=== PATIENT | female | born 1990 | race Caucasian/White ===

== ENCOUNTER → 2017-09-20 | Outpatient (CLI) | payer BC ==
--- NOTE | 2017-09-20 13:40 | KCIC ---
EXAM: Obstetrics sonogram. HISTORY: High risk . Size unequal to dates. TECHNIQUE: Sonographic imaging of a gravid uterus was performed. COMPARISON: None. FINDINGS: There is a single intrauterine fetus in cephalic presentation with a heart rate of 139 bpm. There is a posterior placenta without evidence of placenta previa. The cervix is closed and measures 5.8 cm in length. The amniotic fluid index is normal at 13.6 cm. There is body motion and breathing motion. There is a four-chamber heart. The stomach, kidneys, bladder, spine and brain are unremarkable. There is a four-chamber heart. The number of umbilical cord vessels cannot be determined and due to imaging technique. The biparietal diameter is 4.45 cm, corresponding with 19 weeks and 3 days. The head circumference is 16.89 cm, corresponding with 19 weeks and 4 days. The abdominal circumference is 14.53 cm, corresponding with 19 weeks and 6 days. The femoral length is 3.11 cm, corresponding with 19 weeks and 5 days. The estimated gestational age based on combined ultrasound measurements is 19 weeks and 5 days. The estimated weight is 309 g. IMPRESSION: 1. Single intrauterine fetus with a heart rate of 139 bpm and estimated gestational age based on ultrasound measurements of 19 weeks and 5 days. 2. Suboptimal evaluation of the umbilical cord due to technique and motion. Follow-up can be performed to assess umbilical cord vessel number if not previously documented. Electronically signed by: Gretchen Workman MD (09/20/2017 1:37 PM) [id number]
== END | disposition home or self-care (01) ==
LOC: KCIC US 11:19
PROVIDERS: ATTEND Obstetrics & Gynecology
DX: O09.92 Supervision of high risk pregnancy, unspecified, second trimester (principal); O26.842 Uterine size-date discrepancy, second trimester; Z3A.19 19 weeks gestation of pregnancy
CPT/HCPCS: 76805

== ENCOUNTER → 2017-12-02 | Outpatient (CLI) | payer BC ==
[2017-12-02 10:15] LABS: ADD MAN DIFF? NO
[2017-12-02 10:25] LABS: BASO % 0 % (0-3); EOS # 0.1 x10^3/uL (0.0-0.7); EOS % 1 % (0-3); HEMATOCRIT 40.2 % (36.0-47.0); HEMOGLOBIN 13.1 g/dL (12.0-15.5); LYMPH # 2.4 x10^3/uL (1.0-4.8); LYMPH % 15 % (24-48); MEAN CORPUSCULAR HEMOGLOBIN 30 pg (25-35); MEAN CORPUSCULAR HGB CONC 33 g/dL (31-37); MEAN CORPUSCULAR VOLUME 91 fL (79-100); MONO # 1.2 x10^3/uL (0.0-1.1); MONO % 7 % (0-9); NEUT # 12.6 x10^3uL (1.8-7.7); NEUT % 77 % (31-73); PLATELET COUNT 269 x10^3/uL (140-400); RED BLOOD COUNT 4.43 x10^6/uL (3.50-5.40); RED CELL DISTRIBUTION WIDTH 13.5 % (11.5-14.5); WHITE BLOOD COUNT 16.2 x10^3/uL (4.0-11.0)
[2017-12-02 10:32] LABS: GLUCOSE 65 mg/dL (70-99)
[2017-12-02 11:53] LABS: TYPE AND SCREEN 1 1
== END | disposition home or self-care (01) ==
LOC: LAB 09:52
DX: O09.93 Supervision of high risk pregnancy, unspecified, third trimester (principal); Z3A.29 29 weeks gestation of pregnancy
CPT/HCPCS: 36415; 82947; 82950; 85025; 86850; 86900; 86901; 96372; J2791

== ENCOUNTER 2018-01-01 11:26 | Inpatient (IN) | payer BC ==
[2018-01-01 12:32] LABS: AMNIO PT NEGATIVE; NEG OBC AMNIO NEG; POS OBC AMNIO POS
[2018-01-01 13:05] LABS: BILIRUBIN,URINE NEGATIVE (NEG); CLARITY,URINE CLEAR; COLOR,URINE YELLOW; GLUCOSE,URINE NEGATIVE (NEG); NITRITE,URINE NEGATIVE (NEG); PROTEIN,URINE NEGATIVE (NEG-TRACE); UROBILINOGEN,URINE 0.2 mg/dL (0.2 mg/dL)
[2018-01-01 13:06] LABS: BASO % 0 % (0-3); EOS # 0.1 x10^3/uL (0.0-0.7); EOS % 0 % (0-3); HEMATOCRIT 33.7 % (36.0-47.0); HEMOGLOBIN 11.3 g/dL (12.0-15.5); LYMPH % 12 % (24-48); MEAN CORPUSCULAR HEMOGLOBIN 30 pg (25-35); MEAN CORPUSCULAR HGB CONC 34 g/dL (31-37); MEAN CORPUSCULAR VOLUME 88 fL (79-100); MONO # 1.4 x10^3/uL (0.0-1.1); MONO % 9 % (0-9); NEUT # 12.7 x10^3uL (1.8-7.7); NEUT % 78 % (31-73); PLATELET COUNT 209 x10^3/uL (140-400); RED BLOOD COUNT 3.84 x10^6/uL (3.50-5.40); RED CELL DISTRIBUTION WIDTH 13.9 % (11.5-14.5); WHITE BLOOD COUNT 16.2 x10^3/uL (4.0-11.0)
[2018-01-01 13:09] LABS: ADD MAN DIFF? YES
[2018-01-01 13:26] LABS: BACTERIA,URINE MODERATE /HPF (0-FEW); RBC,URINE 0 /HPF (0-2); SQUAMOUS EPITHELIAL CELL,UR FEW /LPF
[2018-01-01] MEDS: BETAMET ACET&NA PHOS 30 MG/5 ML VIAL. IM (13:39)
[2018-01-01] MEDS ORDERED: 0.9 % SODIUM CHLORIDE 10 ML DISP.SYRIN. IV ×2 (13:45→19:15)
[2018-01-01] MEDS ORDERED: ONDANSETRON PF 4 MG/2 ML VIAL. IV ×2 (13:45→17:00)
[2018-01-01] MEDS ORDERED: LIDOCAINE 1% PF 30 ML VIAL. INJ (13:45)
[2018-01-01] MEDS: IV RINGERS,LACTATED 1000ML 1,000 ML IV ×2 (13:46→14:19)
[2018-01-01] MEDS: PENICILLIN G K 5,000,000 UNIT in IV DEXTROSE 5% 100 ML IV (14:28)
[2018-01-01] MEDS: fentaNYL PF VIAL 100 MCG/2 ML VIAL IV (15:33)
[2018-01-01 15:53] LABS: % ATYL 3 % (0-0); % BANDS 8 % (0-9); % LYMPHS 10 % (24-48); % METAS 2 % (0-0); % MONOS 4 % (0-10); % MYELOS 1 % (0-0); % SEGS 72 % (35-66); PLT ESTIMATE ADEQUATE (ADEQUATE)
[2018-01-01] MEDS ORDERED: L&D EPIDURAL CASSETTE 100 ML EP (16:59)
[2018-01-01] MEDS ORDERED: ROPIVacaine 0.2% IN 0.9%NACL PF 40 MG/20 ML DISP.SYRIN. ×2 (16:59→17:00)
[2018-01-01] MEDS: ROPIVacaine 0.2% PF 10 ML VIAL. EPI (17:00)
[2018-01-01] MEDS ORDERED: NALOXONE 0.4 MG/ML VIAL. IV (17:00)
[2018-01-01] MEDS ORDERED: ePHEDrine PF IN SALINE 50 MG/5 ML DISP.SYRIN IV (17:00)
[2018-01-01] MEDS: L&D EPIDURAL CASSETTE 100 ML EP (17:25)
[2018-01-01] MEDS: fentaNYL PF VIAL 100 MCG/2 ML VIAL EPI (17:25)
[2018-01-01] MEDS: PENICILLIN G K 2,500,000 UNIT in IV DEXTROSE 5% 50 ML IV ×2 (18:00→21:27)
[2018-01-01] MEDS: OXYTOCIN 30 UNIT/500 ML PREMIX 500 ML IV (18:47)
[2018-01-01] MEDS ORDERED: PHENYLEPH/MINERAL OIL/PETROLAT RECTAL OINTMENT 28GM TUBE. RC (19:15)
[2018-01-01] MEDS ORDERED: MAG HYDROX/ALUMINUM HYD/SIMETH 30 ML ORAL.SUSP PO (19:15)
[2018-01-01] MEDS ORDERED: ZOLPIDEM 5 MG TABLET. PO (19:15)
[2018-01-01] MEDS ORDERED: OXYTOCIN 30 UNIT/500 ML PREMIX 500 ML IV (19:15)
[2018-01-01] MEDS ORDERED: HYDROCORTISONE 1% TOPICAL OINTMENT 30GM TUBE. TP (19:15)
[2018-01-01] MEDS ORDERED: MMR per PROTOCOL. MC (19:15)
[2018-01-01] MEDS ORDERED: IBUPROFEN 800 MG TABLET. PO (19:15)
[2018-01-01] MEDS ORDERED: oxyCODONE/APAP 5/325 1 TAB TABLET PO (19:15)
[2018-01-01] MEDS ORDERED: diphenhydrAMINE HCL 25 MG CAPSULE PO (19:15)
[2018-01-01] MEDS ORDERED: MAGNESIUM HYDROXIDE 2,400 MG/30 ML ORAL.SUSP. PO (19:15)
[2018-01-01] MEDS ORDERED: ACETAMINOPHEN 325 MG TABLET. PO (19:15)
[2018-01-01] MEDS: BENZOCAINE 20% TOPICAL AEROSOL SPRAY 57GM CAN. TP (21:03)
[2018-01-01] MEDS: SIMETHICONE 80 MG TAB.CHEW PO (23:56)
[2018-01-01] MEDS: DOCUSATE SODIUM 100 MG CAPSULE. PO (23:57)
[2018-01-01] MEDS: FLUCONAZOLE 100 MG TABLET. PO (23:57)
[2018-01-01] MEDS: IBUPROFEN 800 MG TABLET. PO (23:58)
[2018-01-02 06:24] LABS: ADD MAN DIFF? NO
[2018-01-02 06:54] LABS: BASO % 0 % (0-3); EOS % 0 % (0-3); HEMOGLOBIN 11.3 g/dL (12.0-15.5); LYMPH # 1.7 x10^3/uL (1.0-4.8); LYMPH % 6 % (24-48); MEAN CORPUSCULAR HEMOGLOBIN 29 pg (25-35); MEAN CORPUSCULAR HGB CONC 33 g/dL (31-37); MEAN CORPUSCULAR VOLUME 88 fL (79-100); MONO # 1.9 x10^3/uL (0.0-1.1); MONO % 7 % (0-9); NEUT # 25.6 x10^3uL (1.8-7.7); NEUT % 88 % (31-73); PLATELET COUNT 258 x10^3/uL (140-400); RED BLOOD COUNT 3.88 x10^6/uL (3.50-5.40); RED CELL DISTRIBUTION WIDTH 13.9 % (11.5-14.5); WHITE BLOOD COUNT 29.2 x10^3/uL (4.0-11.0)
[2018-01-02] MEDS ORDERED: FERROUS SULFATE 325 MG TABLET. PO (08:00)
[2018-01-02] MEDS ORDERED: ALBUTEROL SULFATE 2.5 MG/3 ML NEBU. NEB (08:15)
[2018-01-02 10:16] LABS: % BANDS 1 % (0-9); % LYMPHS 4 % (24-48); % MONOS 1 % (0-10); % SEGS 94 % (35-66); PLT ESTIMATE ADEQUATE (ADEQUATE)
[2018-01-02] MEDS: PANTOPRAZOLE 40 MG TABLET.DR. PO (19:42)
[2018-01-02] MEDS: IBUPROFEN 800 MG TABLET. PO (23:06)
[2018-01-03 07:05] LABS: ADD MAN DIFF? NO
[2018-01-03 07:18] LABS: BASO % 0 % (0-3); EOS % 0 % (0-3); HEMATOCRIT 29.9 % (36.0-47.0); HEMOGLOBIN 9.8 g/dL (12.0-15.5); LYMPH # 3.2 x10^3/uL (1.0-4.8); LYMPH % 17 % (24-48); MEAN CORPUSCULAR HEMOGLOBIN 29 pg (25-35); MEAN CORPUSCULAR HGB CONC 33 g/dL (31-37); MEAN CORPUSCULAR VOLUME 89 fL (79-100); MONO # 1.7 x10^3/uL (0.0-1.1); MONO % 9 % (0-9); NEUT # 13.5 x10^3uL (1.8-7.7); NEUT % 73 % (31-73); PLATELET COUNT 227 x10^3/uL (140-400); RED BLOOD COUNT 3.35 x10^6/uL (3.50-5.40); RED CELL DISTRIBUTION WIDTH 14.4 % (11.5-14.5); WHITE BLOOD COUNT 18.4 x10^3/uL (4.0-11.0)
[2018-01-03 08:07] LABS: RPR Non Reactive (Non Reactive)
[2018-01-03] MEDS: DOCUSATE SODIUM 100 MG CAPSULE. PO ×2 (08:38→16:52)
[2018-01-03] MEDS: SIMETHICONE 80 MG TAB.CHEW PO (08:39)
[2018-01-03] MEDS: PANTOPRAZOLE 40 MG TABLET.DR. PO (08:39)
[2018-01-03] MEDS: IBUPROFEN 800 MG TABLET. PO ×2 (08:39→16:52)
[2018-01-03] MEDS: MEASLES, MUMPS & RUBELLA VACC 0.5 ML VIAL. VAX SQ (14:34)
[2018-01-03 14:35] LABS: FETAL SCREEN 1 1
[2018-01-03] MEDS: DIPHTH,PERTUSS(ACELL),TET TOX 0.5 ML DISP.SYRIN. VAX IM (14:35)
[2018-01-04 07:46] LABS: STREP B BY PCR SEE SEPARATE REPORT
== END 2018-01-03 17:18 | disposition home or self-care (01) | DRG 775 ==
LOC: 3 SO LND 11:26 → 3 NORTH 21:25
PROC: 10E0XZZ Delivery of Products of Conception, External Approach (ICD-10-PCS; principal; 2018-01-01)
PROC: 3E0R3BZ Introduction of Anesthetic Agent into Spinal Canal, Percutaneous Approach (ICD-10-PCS; 2018-01-01)
PROC: 00HU33Z Insertion of Infusion Device into Spinal Canal, Percutaneous Approach (ICD-10-PCS; 2018-01-01)
PROC: 3E0234Z Introduction of Serum, Toxoid and Vaccine into Muscle, Percutaneous Approach (ICD-10-PCS; 2018-01-01)
PROC: 0HQ9XZZ Repair Perineum Skin, External Approach (ICD-10-PCS; 2018-01-01)
PROC: 30233N1 Transfusion of Nonautologous Red Blood Cells into Peripheral Vein, Percutaneous Approach (ICD-10-PCS; 2018-01-01)
DX: O60.14X0 Preterm labor third trimester with preterm delivery third trimester, not applicable or unspecified (principal); O70.0 First degree perineal laceration during delivery; Z23 Encounter for immunization; Z37.0 Single live birth; Z3A.34 34 weeks gestation of pregnancy
CPT/HCPCS: 36415; 71045; 76815; 81001; 84112; 85007; 85025; 85461; 86593; 86850; 86870; 86900; 86901; 87086; 87653; 88307; 90707; 90715; 93005; 94640; 94760; J0702; J2540; J2590; J2791; J2795; J3010; J7120

== ENCOUNTER 2020-09-21 23:12 | Emergency (ER) | payer BC ==
[~2020-09-21] VITALS: Ht 149.9 cm; Wt 72.7 kg
[~2020-09-21 23:12] MED LIST: IBUP-1060 PO; PANT20TA2 PO
[2020-09-22] MEDS ORDERED: KETOROLAC 15 MG/ML VIAL. IVP ONE (01:30)
--- NOTE | 2020-09-22 01:44 | RAD ---
Study: CR SHOULDER 2+V LEFT Indication: Shoulder pain. Comparison: None. Findings: Alignment is anatomic. No significant degenerative change. No acute fracture. Impression: No acute osseous abnormality. Electronically signed by: CELESTE MORRIS MD (09/22/2020 1:41 AM) [id number]
--- NOTE | 2020-09-22 01:45 | RAD ---
Study: CR PORTABLE CHEST 1V Indication: Chest pain. Comparison: 01/02/2018 Findings: The cardiomediastinal silhouette and lizzie are within normal limits. No lobar consolidation, pleural effusion or pneumothorax. Grossly intact osseous structures. Unremarkable upper abdomen. Impression: No acute radiographic abnormality of the chest. Electronically signed by: CELESTE MORRIS MD (09/22/2020 1:42 AM) [id number]
[2020-09-22 01:51] LABS: BASO # 0.1 x10^3/uL (0.0-0.2); BASO % 0 % (0-3); EOS # 0.2 x10^3/uL (0.0-0.7); EOS % 1 % (0-3); HEMATOCRIT 39.8 % (36.0-47.0); HEMOGLOBIN 13.4 g/dL (12.0-15.5); LYMPH % 31 % (24-48); MEAN CORPUSCULAR HEMOGLOBIN 30 pg (25-35); MEAN CORPUSCULAR HGB CONC 34 g/dL (31-37); MEAN CORPUSCULAR VOLUME 88 fL (79-100); MONO # 1.2 x10^3/uL (0.0-1.1); MONO % 9 % (0-9); NEUT # 7.4 x10^3/uL (1.8-7.7); NEUT % 58 % (31-73); PLATELET COUNT 292 x10^3/uL (140-400); RED CELL DISTRIBUTION WIDTH 13.2 % (11.5-14.5); WHITE BLOOD COUNT 12.7 x10^3/uL (4.0-11.0)
--- NOTE | 2020-09-22 01:53 | PHYS DOC ---
Past Medical History Past Medical History: No Pertinent History Past Surgical History: Other Additional Past Surgical Histo: HERNIA MESH Smoking Status: Former Smoker Alcohol Use: None General Adult EDM: Chief Complaint: SHOUDLER pain HPI: HPI: Patient is a 30 year old female who presents with left-sided subscapular shoulder and axilla pain. Pain has been going on for the last 6 weeks. Patient was seen by another physician and diagnosed with pleurisy. Patient describing pain that radiates into her chest and somewhat down her arm. Patient has 10 out of 10 pain with range of motion which makes the symptoms worse. Patient has pain with deep breaths. Patient is also describing some shortness of breath. Review of Systems: Review of Systems: Constitutional: Denies fever or chills. [] Eyes: Denies change in visual acuity. [] HENT: Denies nasal congestion or sore throat. [] Respiratory: Denies but has shortness of breath. [] Cardiovascular: Complains of some left-sided chest pain that radiated from the left shoulder GI: Denies abdominal pain, nausea, vomiting, bloody stools or diarrhea. [] : Denies dysuria. [] Musculoskeletal: Complains of pain beneath the left scapula and in thoracic area as well as in the left shoulder Integument: Denies rash. [] Neurologic: Denies headache, focal weakness or sensory changes. [] Endocrine: Denies polyuria or polydipsia. [] Lymphatic: Denies swollen glands. [] Psychiatric: Denies depression or anxiety. [] Heart Score: HEART Score for Chest Pain: HEART Score for Chest Pain Response (Comments) Value History Slighlty/Non-Suspicious 0 ECG Normal 0 Age < 45 0 Risk Factors No Risk Factors 0 Troponin < Normal Limit 0 Total 0 Risk Factors: Risk Factors: DM, Current or recent (<one month) smoker, HTN, HLP, family history of CAD, obesity. Risk Scores: Score 0 - 3: 2.5% MACE over next 6 weeks - Discharge Home Score 4 - 6: 20.3% MACE over next 6 weeks - Admit for Clinical Observation Score 7 - 10: 72.7% MACE over next 6 weeks - Early Invasive Strategies Current Medications: Current Medications Medications (Trade) Dose Ordered Sig/Cookie Start Time Stop Time Status Last Admin Dose Admin Ketorolac Tromethamine (Toradol 15mg Vial) 15 mg 1X ONCE 09/22/20 01:30 09/22/20 01:31 DC 09/22/20 01:43 15 MG Allergies: Allergies: Allergies Coded Allergies Type Severity Reaction Last Updated Verified No Known Drug Allergies 01/01/18 No Physical Exam: PE: Constitutional: Well developed, well nourished, no acute distress, non-toxic appearance. [] HENT: Normocephalic, atraumatic, bilateral external ears normal, no trismus nose normal. [] Eyes: PERRLA, EOMI, conjunctiva normal, no discharge. [] Neck: Normal range of motion, no tenderness, supple, no stridor. [] Cardiovascular:Heart rate regular rhythm, peripheral pulses are intact cap refill is brisk Lungs & Thorax: Bilateral breath sounds clear, no respiratory distress. Tenderness to palpate left chest wall Abdomen: , soft, no tenderness, no masses, no pulsatile masses. [] Skin: Warm, dry, no erythema, no rash. [] Back: No tenderness, tenderness on the left thoracic area Extremities: Tenderness to the left shoulder and left chest wall in the left axilla with some fullness present. significant range of motion decreased in the left shoulder Neurologic: Alert and oriented X 3, normal motor function, normal sensory function, no focal deficits noted. [] Psychologic: Affect normal, judgement normal, mood normal. [] Current Patient Data: Labs: Laboratory Tests Test 09/22/20 01:25 White Blood Count 12.7 x10^3/uL Red Blood Count 4.50 x10^6/uL Hemoglobin 13.4 g/dL Hematocrit 39.8 % Mean Corpuscular Volume 88 fL Mean Corpuscular Hemoglobin 30 pg Mean Corpuscular Hemoglobin Concent 34 g/dL Red Cell Distribution Width 13.2 % Platelet Count 292 x10^3/uL Neutrophils (%) (Auto) 58 % Lymphocytes (%) (Auto) 31 % Monocytes (%) (Auto) 9 % Eosinophils (%) (Auto) 1 % Basophils (%) (Auto) 0 % Neutrophils # (Auto) 7.4 x10^3/uL Lymphocytes # (Auto) 4.0 x10^3/uL Monocytes # (Auto) 1.2 x10^3/uL Eosinophils # (Auto) 0.2 x10^3/uL Basophils # (Auto) 0.1 x10^3/uL D-Dimer (Alice) < 0.27 ug/mlFEU Maternal Serum HCG Beta Subunit 1 mIU/mL Sodium Level 141 mmol/L Potassium Level 3.4 mmol/L Chloride Level 106 mmol/L Carbon Dioxide Level 27 mmol/L Anion Gap 8 Blood Urea Nitrogen 12 mg/dL Creatinine 1.6 mg/dL Estimated GFR (Cockcroft-Gault) 38.1 BUN/Creatinine Ratio 8 Glucose Level 104 mg/dL Calcium Level 8.9 mg/dL Total Bilirubin 0.2 mg/dL Aspartate Amino Transf (AST/SGOT) 12 U/L Alanine Aminotransferase (ALT/SGPT) 14 U/L Alkaline Phosphatase 50 U/L Troponin I Quantitative < 0.017 ng/mL C-Reactive Protein, Quantitative 1.4 mg/L Total Protein 7.0 g/dL Albumin 3.8 g/dL Albumin/Globulin Ratio 1.2 Current Medications Medications (Trade) Dose Ordered Sig/Cookie Route PRN Reason Start Time Stop Time Status Last Admin Dose Admin Ketorolac Tromethamine (Toradol 15mg Vial) 15 mg 1X ONCE IVP 09/22/20 01:30 09/22/20 01:31 DC 09/22/20 01:43 Vital Signs: Vital Signs Date Time Temp Pulse Resp B/P (MAP) Pulse Ox O2 Delivery O2 Flow Rate FiO2 09/21/20 23:55 97.9 92 13 133/69 (90) 98 Room Air 97.9 EKG: EKG: EKG interpreted by me normal sinus rhythm with a rate of 68 normal axis normal intervals normal ST segments [] Radiology/Procedures: Radiology/Procedures: [][facility] [address] [place] [address] IMAGING REPORT Signed PATIENT: SJ FENG ACCOUNT: [id number] : 1990 LOCATION: ER AGE: 30 SEX: F EXAM STATUS: REG ER ORD. PHYSICIAN: MIGUELINA WHITLEY MD REASON: left shoulder/chest pain PROCEDURE: SHOULDER 2+V LEFT Study: CR SHOULDER 2+V LEFT Indication: Shoulder pain. Comparison: None. Findings: Alignment is anatomic. No significant degenerative change. No acute fracture. Impression: No acute osseous abnormality. Electronically signed by: CELESTE MORRIS MD (09/22/2020 1:41 AM) [id number] DICTATED and SIGNED BY: CELESTE MORRIS MD DATE: 09/22/20140 [facility] [address] [place] [address] IMAGING REPORT Signed PATIENT: SJ FENG ACCOUNT: [id number] : 1990 LOCATION: ER AGE: 30 SEX: F EXAM STATUS: REG ER ORD. PHYSICIAN: MIGUELINA WHITLEY MD REASON: left shoulder/chest pain PROCEDURE: PORTABLE CHEST 1V Study: CR PORTABLE CHEST 1V Indication: Chest pain. Comparison: 01/02/2018 Findings: The cardiomediastinal silhouette and lizzie are within normal limits. No lobar consolidation, pleural effusion or pneumothorax. Grossly intact osseous structures. Unremarkable upper abdomen. Impression: No acute radiographic abnormality of the chest. Electronically signed by: CELESTE MORRIS MD (09/22/2020 1:42 AM) [id number] DICTATED and SIGNED BY: CELESTE MORRIS MD DATE: 09/22/20141 Course & Med Decision Making: Course & Med Decision Making Pertinent Labs and Imaging studies reviewed. (See chart for details) [] 30-year-old female presents with left-sided chest wall and shoulder pain is worse with range of motion. Patient has significant tenderness under the left axilla and limited range of motion left shoulder. My work-up is reassuring, I have no obvious etiology for the symptoms of her pain. Patient be treated with a sling and steroids to help reduce information as well as pain meds. Patient given referral to an orthopedic doctor as well as her primary care physician for further evaluation treatment. Dragon Disclaimer: Dragon Disclaimer: This electronic medical record was generated, in whole or in part, using a voice recognition dictation system. Departure Departure Impression: Primary Impression: Left-sided chest wall pain Additional Impressions: Chest pain Left shoulder pain Disposition: 01 DC HOME SELF CARE/HOMELESS Condition: STABLE Referrals: BRENT RIVERS MD (PCP) 2-3 days QUINCY STEVENSON MD 2-3 days Patient Instructions: Arm Sling Use-Brief, Chest Wall Pain, Shoulder Pain Additional Instructions: EMERGENCY DEPARTMENT GENERAL DISCHARGE INSTRUCTIONS THANK YOU for coming to [facility] Emergency Department (ED) today and trusting us with your care. We trust that you had a positive experience in our Emergency Department. If you wish to speak to the department Management you can contact the environmental department manager at . YOUR FOLLOW UP INSTRUCTIONS ARE FOLLOWS: Do you have a private doctor? If you do not have a private doctor, please ask for a resource list of physicians or clinics that may be able to assist you with follow up care. The Emergency Physician has interpreted your x-rays. The X-ray specialist will also review them. If there is a change in the findings you will be notified in 48 hours when at all possible. A lab test or lab culture may have been done, your results will be reviewed and you will be notified if you need a change in treatment. ADDITIONAL INSTRUCTIONS AND INFORMATION Your care today has been supervised by a physician who is specially trained in emergency care. Many problems require more than one evaluation for a complete diagnosis and treatment. We recommend that you schedule your follow up appointment as recommended to ensure complete treatment of your illness or injury. If you are unable to obtain follow up care and continue to have a problem, or if your condition worsens we recommend that you return to the ED. We are not able to safely determine your condition over the phone nor are we able to give sound medical advice over the phone. For these safety reasons, if you call for medical advice we will ask you to come to the ED for further evaluation If you have any questions regarding these discharge instructions please call the ED at . SAFETY INFORMATION In the interest of safety, wellness, and injury prevention; we encourage you to wear your seatbelt, if you smoke; quit smoking, and we encourage your family to use protective helmet for bicycling and other sporting events that present an increased risk for head injury. IF YOUR SYMPTOMS WORSEN OR NEW SYMPTOMS DEVELOP, OR YOU HAVE CONCERNS ABOUT YOUR CONDITION; OR IF YOUR CONDITION WORSENS WHILE YOU ARE WAITING FOR YOUR FOLLOW UP APPOINTMENT; EITHER CONTACT YOUR PRIMARY CARE DOCTOR, THE PHYSICIAN WHOSE NAME AND NUMBER YOU WERE GIVEN, OR RETURN TO THE ED IMMEDIATELY. Scripts Hydrocodone/Apap 5-325 (NORCO 5-325 TABLET) 1 Each Tablet 1-2 EACH PO PRN Q6HRS PRN for PAIN, #15 as needed for pain Prov: MIGUELINA WHITLEY MD 09/22/20 Methylprednisolone (MEDROL) 4 Mg Tab.ds.pk 1 PKG PO UD, #1 PKG Prov: MIGUELINA WHITLEY MD 09/22/20 MIGUELINA WHITLEY MD Sep 22, 2020 01:53
[2020-09-22 01:59] LABS: CALCIUM 8.9 mg/dL (8.5-10.1); CREATININE 1.6 mg/dL (0.6-1.0); GFR 38.1; POTASSIUM 3.4 mmol/L (3.5-5.1)
[2020-09-22 02:05] LABS: ALBUMIN 3.8 g/dL (3.4-5.0); ALBUMIN/GLOBULIN RATIO 1.2 (1.0-1.7); C-REACTIVE PROTEIN 1.4 mg/L (0-3.3); TOTAL BILIRUBIN 0.2 mg/dL (0.2-1.0)
--- NOTE | 2020-09-22 03:30 | RAD ---
STUDY: CT chest without contrast INDICATION: Left chest/axilla pain. COMPARISON: None. TECHNIQUE: Helical CT imaging of the chest performed without the use of intravenous contrast. Sagittal and coronal reformats were obtained. One or more of the following individualized dose reduction techniques were utilized for this examination: 1. Automated exposure control 2. Adjustment of the mA and/or kV according to patient size 3. Use of iterative reconstruction technique. FINDINGS: Vasculature: Nonaneurysmal aorta. The main pulmonary artery is within normal limits for transverse dimension. Mediastinum/lizzie: No mass, adenopathy or pericardial effusion. Lungs: Unremarkable. Neck/axilla/chest wall: No axillary adenopathy on either side. Unremarkable thyroid. Faint axillary skin thickening on the left and trace subcutaneous fatty reticulation. No fluid collection is apparent. The visualized breast tissue is relatively symmetric. Unremarkable musculature. Bones: No acute fracture or malalignment at either shoulder girdle. Intact ribs and thoracic spine. No significant degenerative changes. Upper abdomen: Unremarkable. IMPRESSION: 1. No acute abnormality is identified throughout the chest to account for the patient's symptoms with particular attention paid to the left shoulder and axilla given history. 2. There is apparent mild skin thickening at the left axilla and minimal subcutaneous fatty stranding but the contralateral side is not included in the [id number] to determine if this is asymmetric and of any significance. Correlate with direct inspection for any regional inflammation such as could be from hydradenitis. Electronically signed by: CELESTE MORRIS MD (09/22/2020 3:27 AM) [id number]
[2020-09-22] MEDS ORDERED: HYDR-3164 PO (03:42)
[2020-09-22] MEDS ORDERED: METH4TAB2 PO (03:42)
[2020-09-22 04:15] VITALS: BP 120/70
--- NOTE | 2020-09-22 05:41 | EKG ---
[facility] [address] [place] [address] Test Date: 2020-09-22 Test Time: 01:22:06 Pat Name: SJ FENG Department: Room: Gender: F Tapper Operator: : 1990 Requested By: MIGUELINA WHITLEY Order Number: [id number] Reading MD: Measurements Intervals [place] Rate: 68 P: 45 MS: 168 QRS: 28 QRSD: 82 T: 28 QT: 390 QTc: 415 Interpretive Statements SINUS RHYTHM NO SPECIFIC ECG ABNORMALITIES RI6.01 No previous ECG available for comparison
== END 2020-09-22 04:15 | disposition home or self-care (01) ==
LOC: ER 23:12
DX: R07.89 Other chest pain (principal); M25.512 Pain in left shoulder; R06.02 Shortness of breath; Z87.891 Personal history of nicotine dependence
CPT/HCPCS: 36415; 71045; 71250; 73030; 80053; 84484; 84702; 85025; 85379; 86140; 93005; 96374; 99285; J1885

== ENCOUNTER 2021-08-31 15:30 | Emergency (ER) | payer BC ==
[~2021-08-31] VITALS: Ht 149.9 cm; Wt 81.8 kg
[~2021-08-31 15:30] MED LIST changes: +HYDR-3164 PO; +METH4TAB2 PO
--- NOTE | 2021-08-31 17:10 | RAD ---
RIGHT LEG VENOUS DOPPLER STUDY: Clinical indications: Right thigh pain. Findings: Duplex sonography (including peraza scale evaluation and color flow and waveform spectral keri lysis) of the proximal aspect of the greater saphenous vein and proximal aspect of the profunda femor al vein and the entire length of the common femoral and superficial femoral and popliteal veins and t he tibioperoneal trunk and the proximal aspect of the posterior tibial and peroneal veins of the righ t leg was performed. Normal compressibility, augmentation of color Doppler flow after calf compressio n, and respiratory variation of Doppler flow is seen. Thus, there are no sonographic findings of deep venous thrombosis within these veins. Impression: There are no sonographic findings of deep venous thrombosis within the veins discussed ab ove of the right lower extremity. Electronically signed by: Garcia Ramos MD (08/31/2021 5:08 PM) [id number]
--- NOTE | 2021-08-31 17:33 | RAD ---
INDICATION: Reason: SOA / Spl. Instructions: / History: COMPARISON: September 2020 FINDINGS: Single view of chest obtained. Cardiac silhouette is similar to prior. Relative opacity at lung bases without definite consolidation elsewhere in the lungs. IMPRESSION: * Mild opacity at lung bases. Could be from overlap of structures but a small focus of atelectasis o r infiltrate is not excluded given this finding. Electronically signed by: Tenzin Sam MD (08/31/2021 5:30 PM) [id number]
--- NOTE | 2021-08-31 17:34 | PHYS DOC ---
Past Medical History Past Medical History: No Pertinent History Past Surgical History: Other Additional Past Surgical Histo: HERNIA MESH Smoking Status: Former Smoker Alcohol Use: None General Adult EDM: Chief Complaint: SHORTNESS OF BREATH HPI: HPI: Patient is a 31 year old female with no significant medical history presenting today complaining of shortness of breath, symptoms have been going on for "weeks" initially patient could not narrow down how many weeks she has had the symptoms. I had to talk up for quite some time to get this information, she finally stated 4 weeks. She states she was seen by the PCP 2 weeks ago and had a work-up done including a chest x-ray. She states she was told she has atelectasis. She states she did not know what that meant so she asked the radiology aide who told her one of her lungs has collapsed. Patient denies any fever. Denies any chest pain. She also reports swelling on her right thigh, sh e states this has been weeks as well. Patient denies any trauma. Reports mild pain to the thigh region. States pain is worse on touching the region. 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 Patient is fully vaccinated against Covid including receiving a booster Pfizer vaccine recently Review of Systems: Review of Systems: Constitutional: Denies fever or chills. [] Eyes: Denies change in visual acuity. [] HENT: Denies nasal congestion or sore throat. [] Respiratory: Reports shortness of breath. [] Cardiovascular: Denies chest pain or edema. [] GI: Denies abdominal pain, nausea, vomiting, bloody stools or diarrhea. [] : Denies dysuria. [] Musculoskeletal: Reports pain and swelling to the right thigh. Denies back pain . [] Integument: Denies rash. [] Neurologic: Denies headache, focal weakness or sensory changes. [] Psychiatric: Reports stress. Heart Score: C/O Chest Pain: N/A Risk Factors: Risk Factors: DM, Current or recent (<one month) smoker, HTN, HLP, family history of CAD, obesity. Risk Scores: Score 0 - 3: 2.5% MACE over next 6 weeks - Discharge Home Score 4 - 6: 20.3% MACE over next 6 weeks - Admit for Clinical Observation Score 7 - 10: 72.7% MACE over next 6 weeks - Early Invasive Strategies Allergies: Allergies: Allergies Coded Allergies Type Severity Reaction Last Updated Verified No Known Drug Allergies 01/01/18 No Physical Exam: PE: Constitutional: Well developed, well nourished, no acute distress, non-toxic appearance. [] HENT: Normocephalic, atraumatic, bilateral external ears normal, oropharynx moist, no oral exudates, nose normal. [] Eyes: PERRLA, EOMI, conjunctiva normal, no discharge. [] Neck: Normal range of motion, no tenderness, supple, no stridor. [] Cardiovascular:Heart rate regular rhythm, no murmur [] Lungs & Thorax: Bilateral breath sounds clear to auscultation [] Abdomen: Bowel sounds normal, soft, no tenderness, no masses, no pulsatile masses. [] Skin: Warm, dry, no erythema, no rash. [] Back: No tenderness, no CVA tenderness. [] Extremities: No tenderness, no cyanosis, no clubbing, ROM intact, no edema. Negative Homans' sign bilaterally. Neurologic: Alert and oriented X 3, normal motor function, normal sensory function, no focal deficits noted. [] Psychologic: Affect normal, judgement normal, mood normal. [] Current Patient Data: Labs: Laboratory Tests Test 08/31/21 16:36 POC Urine HCG, Qualitative Hcg negative (Negative) Vital Signs: Vital Signs Date Time Temp Pulse Resp B/P (MAP) Pulse Ox O2 Delivery O2 Flow Rate FiO2 08/31/21 16:43 98.2 85 17 125/62 (83) 100 Room Air 98.2 EKG: EKG: [] Radiology/Procedures: Radiology/Procedures: []PROCEDURE: VENOUS LOWER EXTREMITY RIGHT RIGHT LEG VENOUS DOPPLER STUDY: Clinical indications: Right thigh pain. Findings: Duplex sonography (including peraza scale evaluation and color flow and waveform spectral analysis) of the proximal aspect of the greater saphenous vein and proximal aspect of the profunda femoral vein and the entire length of the common femoral and superficial femoral and popliteal veins and the tibioperoneal trunk and the proximal aspect of the posterior tibial and peroneal veins of the right leg was performed. Normal compressibility, augmentation of color Doppler flow after calf compression, and respiratory variation of Doppler flow is seen. Thus, there are no sonographic findings of deep venous thrombosis within these veins. Impression: There are no sonographic findings of deep venous thrombosis within the veins discussed above of the right lower extremity. Electronically signed by: Guicho Ramos MD (08/31/2021 5:08 PM) [id number] DICTATED and SIGNED BY: GUICHO RAMOS MD DATE: 08/31/21 [id number] 0 Course & Med Decision Making: Course & Med Decision Making Pertinent Labs and Imaging studies reviewed. (See chart for details) This is a 31-year-old female patient presenting to the ED today complaining of shortness of breath for weeks. See HPI, patient has been seen by PCP 2 weeks ago for the same complaint, was worked up including a chest x-ray that she states was noted for atelectasis. She states the radiology aide told her she has a collapsed lung. Vitals on arrival to the ED O2 sats 100% on room air, temperature 98.2, respiration 18, heart rate 85, blood pressure 125/62 She is also complaining of swelling on her right thigh, on physical exam no swelling was noted. Venous Doppler of the right lower extremity was performed which was negative. Chest x-ray was noted for possible atelectasis or infiltrate, CT chest was done which is negative for any acute findings. Negative rapid Covid test. Patient was discharged to home. Discharge with albuterol inhaler. Follow-up with PCP in 1 week Osito Disclaimer: Osito Disclaimer: This electronic medical record was generated, in whole or in part, using a voice recognition dictation system. Departure Departure Impression: Primary Impression: Shortness of breath Additional Impression: Stress Disposition: 01 HOME / SELF CARE / HOMELESS Condition: STABLE Referrals: BRENT RIVERS MD (PCP) follow up in one week with your doctor Patient Instructions: Shortness of Breath, [id number] Additional Instructions: You were evaluated in the emergency room, your CT of the chest is negative for any acute findings, your ultrasound of the right lower extremity is also negative. We encourage you to use the inhaler as needed for shortness of breath. We also encourage you to follow-up with your primary care doctor next week Scripts Albuterol Sulfate (Proair Hfa) 8.5 Gm Hfa.aer.ad 2 PUFF IH PRN Q4-6HRS PRN for wheezing for 21 Days, #1 INHALER 0 Refills Prov: JORDAN MIRANDA APRN 08/31/21 JORDAN MIRANDA APRN Aug 31, 2021 17:34
--- NOTE | 2021-08-31 18:18 | RAD ---
CT of the chest without contrast: Clinical History: Reason: SOA / Spl. Instructions: / History: . Axial helical images of the chest were obtained without contrast. The lungs and pleural margins are clear. There is no mediastinal or hilar lymphadenopathy. Impression: No significant findings. End impression PQRS Compliance Statement: One or more of the following individualized dose reduction techniques were utilized for this examinat ion: 1. Automated exposure control 2. Adjustment of the mA and/or kV according to patient size 3. Use of iterative reconstruction technique Electronically signed by: Arsenio Taylor III, MD (08/31/2021 6:16 PM) [facility]
[2021-08-31 18:32] VITALS: BP 115/65
[2021-08-31] MEDS ORDERED: ALBU2.5V8 IH (18:49)
--- NOTE | 2021-09-01 17:38 | NUR ---
IP: Attempted to contact pt concerning covid results. No answer, left a voicemail to return the call. Addendum: 09/01/21 at 1755 by KENDRICK QUIROGA RN Pt returned my call. I informed her of the negative covid test. Pt verbalized understanding.
== END 2021-08-31 19:10 | disposition home or self-care (01) ==
LOC: ER 15:30
DX: R06.02 Shortness of breath (principal); Z20.822 Contact with and (suspected) exposure to COVID-19; F43.9 Reaction to severe stress, unspecified; Z87.891 Personal history of nicotine dependence
CPT/HCPCS: 71045; 71250; 81025; 87426; 93971; 99285; U0003; U0005